=== PATIENT | male | born 1965 | race Asian ===

== ENCOUNTER → 2020-10-28 | Outpatient (CLI) | payer OTHER ==
--- NOTE | 2020-10-28 12:42 | REP ---
INDICATION: RT RENAL CYST F/U ABN IMAG CT. COMPARISON: CT 08/30/2020. TECHNIQUE: Real-time sonographic evaluation of the kidneys is performed. FINDINGS: Renal cortical echogenicity pattern is normal bilaterally and contours are smooth. There is no hydronephrosis bilaterally. There is a 1 cm anechoic cyst in the lower pole the right kidney and a 9 mm anechoic cyst in the upper pole the left kidney. The right kidney measures 10.9 x 5.2 x 5.7 cm. Left renal dimensions are 10.2 x 5.1 x 6.0 cm. The urinary bladder is unremarkable. Ureteral jets are not visualized in the urinary bladder with Doppler color evaluation. Prostate appears enlarged 4.2 x 5.2 x 4.5 cm, total volume 51.4 cc. IMPRESSION: Simple cyst lower pole right kidney 1 cm in diameter and another in the upper pole the left kidney 9 mm in diameter. <Electronically signed by Dandy Smith > 10/28/20 [id number]
== END ==
LOC: M RAD 11:51
PROVIDERS: ATTEND Family Medicine
DX: N28.1 Cyst of kidney, acquired (principal)

== ENCOUNTER → 2023-05-07 | Outpatient (REF) | payer OTHER | LOC: M SFHCDERM 17:12 | PROVIDERS: ATTEND Nurse Practitioner Family | DX: R23.8 Other skin changes (principal) ==

== ENCOUNTER → 2024-01-24 | Outpatient (CLI) | payer OTHER | LOC: M WHC 06:44 | PROVIDERS: ATTEND Nurse Practitioner Family | DX: I15.9 Secondary hypertension, unspecified (principal) ==

== ENCOUNTER 2024-06-02 08:13 | Inpatient (IN) | payer OTHER ==
[~2024-06-02] VITALS: Ht 157.5 cm; Wt 75.7 kg
[2024-06-02 09:56] LABS: AMPHETAMINES LEVEL URINE NEGATIVE (NEGATIVE); BARBITURATES URINE NEGATIVE (NEGATIVE); BENZODIAZEPINES URINE NEGATIVE (NEGATIVE); COCAINE METABOLITE URINE NEGATIVE (NEGATIVE); METHADONE URINE NEGATIVE (NEGATIVE); OPIATES URINE NEGATIVE (NEGATIVE)
[2024-06-02 09:57] LABS: CANNABINOIDS URINE NEGATIVE (NEGATIVE); PHENCYCLIDINE URINE NEGATIVE (NEGATIVE)
[2024-06-02 10:21] LABS: HEMATOCRIT 44.4 % (42.0-52.0); MEAN CORPUSCULAR HEMOGLOBIN 30.7 pg (27.0-33.0); MEAN CORPUSCULAR HGB CONC 33.8 g/dl (32.0-36.5); MEAN CORPUSCULAR VOLUME 90.8 fl (80.0-96.0); PLATELET COUNT, AUTOMATED 265 10^3/uL (150-450); RED BLOOD COUNT 4.89 10^6/uL (4.30-6.10); WHITE BLOOD COUNT 8.3 10^3/uL (4.0-10.0)
[2024-06-02 10:37] LABS: ETHYL ALCOHOL (ETHANOL) < 0.003 % (0.000-0.010)
[2024-06-02 10:38] LABS: SALICYLATE LEVEL < 3.0 MG/DL (<30)
[2024-06-02 10:39] LABS: ALBUMIN 3.9 G/DL (3.2-5.2); ALKALINE PHOSPHATASE 72 U/L (40-129); ALT/SGPT 26 U/L (7.0-40); AST/SGOT 14 U/L (<34); BILIRUBIN,DIRECT 0.5 MG/DL (<0.4); BILIRUBIN,TOTAL 1.5 MG/DL (0.3-1.2); BLOOD UREA NITROGEN 9 MG/DL (9-23); CALCIUM LEVEL 9.6 MG/DL (8.5-10.1); CARBON DIOXIDE LEVEL 27 MMOL/L (20-31); CHLORIDE LEVEL 104 MMOL/L (98-107); CREATININE FOR GFR 0.74 MG/DL (0.70-1.30); GLOMERULAR FILTRATION RATE > 90.0 (>56); GLUCOSE, FASTING 121 MG/DL (60-100); POTASSIUM SERUM 4.6 MMOL/L (3.5-5.1); SODIUM LEVEL 139 MMOL/L (136-145); TOTAL PROTEIN 7.4 G/DL (5.7-8.2)
[2024-06-02 10:42] LABS: THYROID STIMULATING HORMONE 1.172 uIU/ML (0.55-4.78)
[2024-06-02] MEDS ORDERED: OMEP1CAP73 PO (14:09)
[2024-06-02] MEDS ORDERED: KP BTAB PO (14:09)
[2024-06-02] MEDS ORDERED: VITA500T41 PO (14:09)
[2024-06-02] MEDS ORDERED: DOCU100C17 PO (14:12)
[2024-06-02] MEDS ORDERED: OMEG10002 PO (14:12)
[2024-06-02] MEDS ORDERED: ATOR80TA59 PO (14:12)
[2024-06-02] MEDS ORDERED: OMEP1CAP77 PO (14:14)
[2024-06-02] MEDS ORDERED: D 1010002 PO (14:15)
[2024-06-02] MEDS ORDERED: EQ HPAD TOP (14:17)
[2024-06-02] MEDS ORDERED: LORA-1041 PO (14:18)
[2024-06-02] MEDS ORDERED: IPRA6SP (14:19)
[2024-06-02] MEDS ORDERED: SPIR50TA4 PO (14:20)
[2024-06-02] MEDS ORDERED: AMLO1TAB25 PO (14:21)
[2024-06-02] MEDS ORDERED: ASPI81CH48 PO (14:22)
[2024-06-02] MEDS ORDERED: LIDO1PAD TOP (14:30)
[2024-06-02] MEDS ORDERED: POLY1.4S OU (14:35)
[2024-06-02] MEDS ORDERED: TAFL1DRO2 OU (14:35)
[2024-06-02] MEDS ORDERED: OLOP5DRO17 OU (14:37)
[2024-06-02] MEDS ORDERED: DORZ2SOL5 OU (14:37)
[2024-06-02] MEDS ORDERED: CYCL1DRO10 OU (14:41)
[2024-06-02] MEDS ORDERED: CARB15DR41 OU (14:41)
[2024-06-02] MEDS ORDERED: BRIM0.2S13 OU (14:42)
[2024-06-02] MEDS ORDERED: MAGN400T2 PO (14:44)
[2024-06-02] MEDS ORDERED: MED REC IN PROGRESS XX SCH (14:45)
[2024-06-02] MEDS ORDERED: VITA100T98 PO (14:47)
[2024-06-02] MEDS ORDERED: DIPH-435 PO (14:47)
[2024-06-02] MEDS ORDERED: DICL100G10 TOP (14:49)
[2024-06-02] MEDS ORDERED: diphenhydrAMINE 25MG CAP PO PRN (17:40)
[2024-06-02] MEDS ORDERED: IBUPROFEN 400MG TAB PO PRN (17:40)
[2024-06-02] MEDS ORDERED: traZODone 50 MG TAB PO PRN (17:40)
[2024-06-02] MEDS ORDERED: ACETAMINOPHEN 325 MG TAB PO PRN (17:40)
[2024-06-02] MEDS ORDERED: MOM 30ML SUSPENSION UDC PO PRN (17:40)
[2024-06-02] MEDS ORDERED: MAALOX 30 ML SUSP *UDC PO PRN (17:40)
[2024-06-02] MEDS ORDERED: PRAZ1CAP PO (19:05)
[2024-06-02] MEDS ORDERED: ZOLO100T PO (19:05)
[2024-06-02] MEDS ORDERED: TIZA10TA PO (19:05)
[2024-06-02] MEDS ORDERED: GABA-1172 PO (19:05)
[2024-06-02] MEDS ORDERED: CARV25TA PO (19:05)
[2024-06-02] MEDS ORDERED: LISI40TA4 PO (19:05)
[2024-06-02] MEDS ORDERED: ZOLP12.535 PO (19:05)
[2024-06-02] MEDS ORDERED: HYDR-161 PO (19:05)
[2024-06-02] MEDS ORDERED: LAMO150T3 PO (19:05)
[2024-06-02] MEDS ORDERED: AIMO70IN2 SQ (19:20)
[2024-06-02] MEDS ORDERED: ATEN50TA2 PO (19:20)
[2024-06-02] MEDS ORDERED: PROC10TA5 PO (19:20)
[2024-06-02] MEDS ORDERED: SUMA6CAR SC (19:20)
[2024-06-02] MEDS ORDERED: PREDOPD OS (19:20)
[2024-06-02] MEDS ORDERED: CLIN1GEL55 TP (19:20)
[2024-06-02] MEDS ORDERED: HOME MED LIST COMPLETE! XX SCH (19:25)
[2024-06-02] MEDS ORDERED: SUMAtriptan SUCCINATE 6MG/0.5ML VIAL SC PRN (19:55)
[2024-06-02] MEDS ORDERED: PROCHLORPERAZINE 5MG TAB PO PRN (19:55)
[2024-06-02] MEDS ORDERED: PILL CUTTER 1 EACH XX PRN (20:20)
[2024-06-02 20:53] VITALS: BP 132/87; TEMP 97.3; O2SAT 99
[2024-06-02] MEDS ORDERED: TAFLUPROST 0.0015% OU SCH (21:00)
[2024-06-02] MEDS: IPRATROPIUM 0.06% NASAL SPRAY 15 ML (ATROVENT) SCH (21:00)
[2024-06-02] MEDS: BRIMONIDINE 0.15% OPHTH SOLN 5 ML OU SCH (23:38)
[2024-06-02] MEDS: COSOPT OCUMETER PLUS 10ML (DORZOLAMIDE/TIMOLOL) OU SCH (23:39)
[2024-06-02] MEDS: CLINDAMYCIN TOP 1% SOLN 60ML BTL TOP SCH (23:40)
[2024-06-02] MEDS: atenoloL 50 MG TAB PO SCH (23:42)
[2024-06-02] MEDS: **hydrALAZINE** 10 MG TAB PO SCH (23:43)
[2024-06-02] MEDS: CARVedilol 12.5 MG TAB PO SCH (23:43)
[2024-06-02] MEDS: prednisoLONE ACET 1% OPHTH SUSP 5ML OS SCH (23:44)
[2024-06-02] MEDS: PRAZOSIN 1 MG CAP PO SCH (23:56)
[2024-06-02] MEDS: GABAPENTIN 300 MG CAP PO SCH (23:56)
[2024-06-02] MEDS: tiZANidine 4 MG TAB PO SCH (23:56)
[2024-06-02] MEDS: SPIRONOLACTONE 50 MG TAB PO SCH (23:57)
[2024-06-02] MEDS: ATORVASTATIN 20 MG TAB PO SCH (23:57)
[2024-06-02] MEDS: DOCUSATE SODIUM 100MG CAPSULE PO SCH (23:57)
[2024-06-03] VITALS (10 sets, daily range): BP systolic 74–132; BP diastolic 42–79; TEMP 95.8–97.3; O2SAT 97–99
[2024-06-03] MEDS: SERTRALINE 100 MG TAB PO SCH (08:47)
[2024-06-03] MEDS: VITAMIN D 1,000 INTERNATIONAL UNITS TABLET PO SCH (08:47)
[2024-06-03] MEDS: lamoTRIgine 100MG TAB PO SCH (08:48)
[2024-06-03] MEDS: CYANOCOBALAMIN 500 MCG TAB PO SCH (08:49)
[2024-06-03] MEDS: VITAMIN B COMPLEX/VIT C CAP PO SCH (08:49)
[2024-06-03] MEDS: ASPIRIN 81MG CHEW TABLET PO SCH (08:49)
[2024-06-03] MEDS: OMEPRAZOLE 20MG CAP PO SCH (08:50)
[2024-06-03] MEDS: lisinopriL 40MG TAB PO SCH (08:50)
[2024-06-03] MEDS: LORATADINE 10 MG TAB PO SCH (08:50)
[2024-06-03] MEDS: LIDOCAINE 5% (LIDODERM) PATCH TOP SCH (08:51)
[2024-06-03] MEDS: OLOPATADINE 0.1% OPHTH SOL 5ML(PATANOL) OU SCH (08:51)
[2024-06-03] MEDS: POLYVINYL ALCOHOL OPHTH SOLN 15ML (LIQUITEARS) OU SCH (08:56)
[2024-06-03] MEDS ORDERED: ISOVUE-370 76% 100ML VIAL As Ordered ONE (10:08)
[2024-06-03] MEDS ORDERED: LORazepam 2 MG/ML 1ML VIAL As Ordered ONE (10:09)
[2024-06-03 10:16] LABS: BASO % 0.3 % (0.0-1.0); EOS % 0.3 % (0.0-3.0); HEMATOCRIT 39.2 % (42.0-52.0); HEMOGLOBIN 13.7 g/dl (13.5-17.5); LYMPH # 1.8 10^3/uL (1.5-5.0); LYMPH % 16.9 % (24.0-44.0); MEAN CORPUSCULAR HEMOGLOBIN 30.9 pg (27.0-33.0); MEAN CORPUSCULAR HGB CONC 34.9 g/dl (32.0-36.5); MEAN CORPUSCULAR VOLUME 88.5 fl (80.0-96.0); MONO # 0.9 10^3/uL (0.0-0.8); MONO % 8.8 % (2.0-8.0); NEUTROPHILS # 7.6 10^3/uL (1.5-8.5); NEUTROPHILS % 73.2 % (36.0-66.0); PLATELET COUNT, AUTOMATED 245 10^3/uL (150-450); RED BLOOD COUNT 4.43 10^6/uL (4.30-6.10); WHITE BLOOD COUNT 10.4 10^3/uL (4.0-10.0)
[2024-06-03 10:37] LABS: ALBUMIN 3.5 G/DL (3.2-5.2); ALKALINE PHOSPHATASE 56 U/L (40-129); ALT/SGPT 24 U/L (7.0-40); AST/SGOT 10 U/L (<34); BILIRUBIN,TOTAL 1.9 MG/DL (0.3-1.2); BLOOD UREA NITROGEN 13 MG/DL (9-23); CALCIUM LEVEL 9.2 MG/DL (8.5-10.1); CARBON DIOXIDE LEVEL 24 MMOL/L (20-31); CHLORIDE LEVEL 101 MMOL/L (98-107); CREATININE FOR GFR 0.88 MG/DL (0.70-1.30); GLOMERULAR FILTRATION RATE > 90.0 (>56); GLUCOSE, FASTING 136 MG/DL (60-100); MAGNESIUM LEVEL 1.8 MG/DL (1.8-2.4); POTASSIUM SERUM 4.5 MMOL/L (3.5-5.1); SODIUM LEVEL 135 MMOL/L (136-145); TOTAL PROTEIN 6.4 G/DL (5.7-8.2)
[2024-06-03] MEDS: KETOROLAC 30 MG/ML 1ML VIAL IM ONE (11:20)
[2024-06-03] MEDS: LORazepam 2 MG/ML 1ML VIAL IM STA (11:21)
[2024-06-03] MEDS ORDERED: SODIUM CHLORIDE 0.9% 1000 ML IV ONE (14:50)
[2024-06-04] MEDS ORDERED: lamoTRIgine 25MG TAB PO SCH (09:00)
== END 2024-06-03 15:41 | disposition other institution (70) | DRG 885 ==
LOC: M ED 08:13 → M ED INP 17:37 → M PSY 21:02
PROVIDERS: ADMIT Student in an Organized Health Care Education/Training Program; ATTEND Psychiatry & Neurology Psychiatry
DX: F29 Unspecified psychosis not due to a substance or known physiological condition (principal); F32.3 Major depressive disorder, single episode, severe with psychotic features; Z79.899 Other long term (current) drug therapy

== ENCOUNTER 2024-06-03 15:28 | Observation (INO) | payer OTHER ==
[~2024-06-03] VITALS: Ht 162.6 cm; Wt 83.0 kg
[~2024-06-03 15:28] MED LIST: AIMO70IN2 SQ; AMLO1TAB25 PO; ASPI81CH48 PO; ATEN50TA2 PO; ATOR80TA59 PO; BRIM0.2S13 OU; CARB15DR41 OU; CARV25TA PO; CLIN1GEL55 TP; CYCL1DRO10 OU; D 1010002 PO; DICL100G10 TOP; DIPH-435 PO; DOCU100C17 PO; DORZ2SOL5 OU; EQ HPAD TOP; GABA-1172 PO; HYDR-161 PO; IPRA6SP; KP BTAB PO; LAMO150T3 PO; LIDO1PAD TOP; LISI40TA4 PO; LORA-1041 PO; MAGN400T2 PO; OLOP5DRO17 OU; OMEG10002 PO; OMEP1CAP73 PO; OMEP1CAP77 PO; POLY1.4S OU; PRAZ1CAP PO; PREDOPD OS; PROC10TA5 PO; SPIR50TA4 PO; SUMA6CAR SC; TAFL1DRO2 OU; TIZA10TA PO; VITA100T98 PO; VITA500T41 PO; ZOLO100T PO; ZOLP12.535 PO
[2024-06-03] MEDS: NS (Normal Saline) 0.9% 1,000 ML IV ONE ×2 (15:54→17:25)
[2024-06-03 15:59] VITALS: BP 89/59; TEMP 97.5; O2SAT 100
[2024-06-03 16:41] LABS: HEMATOCRIT 34.7 % (42.0-52.0); HEMOGLOBIN 11.9 g/dl (13.5-17.5); MEAN CORPUSCULAR HEMOGLOBIN 31.3 pg (27.0-33.0); MEAN CORPUSCULAR HGB CONC 34.3 g/dl (32.0-36.5); MEAN CORPUSCULAR VOLUME 91.3 fl (80.0-96.0); PLATELET COUNT, AUTOMATED 208 10^3/uL (150-450); WHITE BLOOD COUNT 9.9 10^3/uL (4.0-10.0)
[2024-06-03 17:03] LABS: CALCIUM LEVEL 8.3 MG/DL (8.5-10.1); CREATININE FOR GFR 1.02 MG/DL (0.70-1.30); GLOMERULAR FILTRATION RATE 85.7 (>56)
[2024-06-03] MEDS: NS (Normal Saline) 0.9% 1,000 ML IV SCH (18:12)
[2024-06-03] MEDS: DICLOFENAC EPOLAMINE 1.3% PATCH TOP SCH (18:12)
[2024-06-03 18:21] VITALS: BP 107/67
[2024-06-03] MEDS ORDERED: POLYVINYL ALCOHOL OPHTH SOLN 15ML (LIQUITEARS) OU PRN (19:25)
[2024-06-03 19:41] VITALS: BP 89/57; TEMP 98; O2SAT 97
[2024-06-03] MEDS: CLINDAMYCIN TOP 1% SOLN 60ML BTL TOP SCH (20:49)
[2024-06-03] MEDS: COSOPT OCUMETER PLUS 10ML (DORZOLAMIDE/TIMOLOL) OU SCH (20:49)
[2024-06-03] MEDS: ATORVASTATIN 20 MG TAB PO SCH (20:50)
[2024-06-03] MEDS: BRIMONIDINE 0.15% OPHTH SOLN 5 ML OU SCH (20:50)
[2024-06-03] MEDS: ACETAMINOPHEN 325 MG TAB PO ONE (20:58)
[2024-06-03] MEDS: RAMELTEON 8 MG TAB (ROZEREM) PO PRN (22:09)
[2024-06-04 00:06] VITALS: BP 96/59; TEMP 98.3; O2SAT 95
[2024-06-04 03:21] VITALS: BP 93/55; TEMP 99.7; O2SAT 96
[2024-06-04 06:22] LABS: HEMATOCRIT 34.9 % (42.0-52.0); HEMOGLOBIN 11.7 g/dl (13.5-17.5); MEAN CORPUSCULAR HEMOGLOBIN 31.2 pg (27.0-33.0); MEAN CORPUSCULAR HGB CONC 33.5 g/dl (32.0-36.5); MEAN CORPUSCULAR VOLUME 93.1 fl (80.0-96.0); PLATELET COUNT, AUTOMATED 191 10^3/uL (150-450); RED BLOOD COUNT 3.75 10^6/uL (4.30-6.10); WHITE BLOOD COUNT 9.2 10^3/uL (4.0-10.0)
[2024-06-04 06:43] LABS: BLOOD UREA NITROGEN 11 MG/DL (9-23); CALCIUM LEVEL 7.9 MG/DL (8.5-10.1); CARBON DIOXIDE LEVEL 25 MMOL/L (20-31); CHLORIDE LEVEL 106 MMOL/L (98-107); CREATININE FOR GFR 0.78 MG/DL (0.70-1.30); GLOMERULAR FILTRATION RATE > 90.0 (>56); GLUCOSE, FASTING 107 MG/DL (60-100); POTASSIUM SERUM 4.6 MMOL/L (3.5-5.1); SODIUM LEVEL 138 MMOL/L (136-145)
[2024-06-04 06:49] LABS: PROCALCITONIN <0.04 ng/ml
[2024-06-04 07:25] VITALS: BP 119/71; TEMP 99.5; O2SAT 95
[2024-06-04] MEDS: OMEPRAZOLE 20MG CAP PO SCH (08:34)
[2024-06-04] MEDS: ASPIRIN 81MG CHEW TABLET PO SCH (08:34)
[2024-06-04] MEDS: OLOPATADINE 0.1% OPHTH SOL 5ML(PATANOL) OU SCH (08:34)
[2024-06-04 12:00] VITALS: BP 115/70; TEMP 98.6; O2SAT 97
[2024-06-04 16:05] VITALS: BP 115/71; TEMP 97.1; O2SAT 97
[2024-06-04 19:54] VITALS: BP 117/71; TEMP 98.4; O2SAT 95
== END 2024-06-04 22:11 ==
LOC: INTOOBSV 15:42 → M PCU 15:42
PROVIDERS: ADMIT Student in an Organized Health Care Education/Training Program; ATTEND Student in an Organized Health Care Education/Training Program
DX: I95.9 Hypotension, unspecified (principal); E87.20 Acidosis, unspecified; E87.1 Hypo-osmolality and hyponatremia; D64.9 Anemia, unspecified; R41.0 Disorientation, unspecified; R63.4 Abnormal weight loss; F39 Unspecified mood [affective] disorder; I10 Essential (primary) hypertension; K21.9 Gastro-esophageal reflux disease without esophagitis; K59.00 Constipation, unspecified; E55.9 Vitamin D deficiency, unspecified; M54.9 Dorsalgia, unspecified; F43.10 Post-traumatic stress disorder, unspecified; F41.9 Anxiety disorder, unspecified; L73.2 Hidradenitis suppurativa; G43.909 Migraine, unspecified, not intractable, without status migrainosus; R91.1 Solitary pulmonary nodule; J30.9 Allergic rhinitis, unspecified; H53.9 Unspecified visual disturbance; Z82.49 Family history of ischemic heart disease and other diseases of the circulatory system; Z81.8 Family history of other mental and behavioral disorders; Z63.4 Disappearance and death of family member; Z79.899 Other long term (current) drug therapy; Z79.82 Long term (current) use of aspirin
CPT/HCPCS: 36415; 70450; 80048; 83605; 84145; 85027; 94660; 96360; 96361; G0378

== ENCOUNTER 2024-06-04 20:09 | Inpatient (IN) | payer OTHER, BC ==
[~2024-06-04] VITALS: Ht 157.5 cm; Wt 75.7 kg
[2024-06-04] MEDS ORDERED: MAALOX 30 ML SUSP *UDC PO PRN (20:40)
[2024-06-04] MEDS ORDERED: ACETAMINOPHEN 325 MG TAB PO PRN (20:40)
[2024-06-04] MEDS ORDERED: traZODone 50 MG TAB PO PRN (20:40)
[2024-06-04] MEDS ORDERED: MOM 30ML SUSPENSION UDC PO PRN (20:40)
[2024-06-04] MEDS ORDERED: HOME MED LIST COMPLETE! XX SCH (22:30)
[2024-06-04 23:39] VITALS: BP 141/79; TEMP 97.6; O2SAT 98
[2024-06-05 06:42] VITALS: BP 152/99; TEMP 97; O2SAT 99
[2024-06-05] MEDS: CLINDAMYCIN TOP 1% SOLN 60ML BTL TOP SCH (09:00)
[2024-06-05] MEDS: OLOPATADINE 0.1% OPHTH SOL 5ML(PATANOL) OU SCH (11:20)
[2024-06-05] MEDS: lamoTRIgine 25MG TAB PO SCH (11:24)
[2024-06-05] MEDS: ASPIRIN 81MG CHEW TABLET PO SCH (11:24)
[2024-06-05] MEDS: SERTRALINE HCL 50 MG TAB PO SCH (11:24)
[2024-06-05] MEDS: POLYVINYL ALCOHOL OPHTH SOLN 15ML (LIQUITEARS) OU SCH (11:24)
[2024-06-05] MEDS ORDERED: POLYVINYL ALCOHOL OPHTH SOLN 15ML (LIQUITEARS) OU PRN (11:25)
[2024-06-05] MEDS: COSOPT OCUMETER PLUS 10ML (DORZOLAMIDE/TIMOLOL) OU SCH (11:30)
[2024-06-05] MEDS: BRIMONIDINE 0.1% OPHTH SOLN 5ML OU SCH (12:26)
[2024-06-05] MEDS: amLODIPine 5 MG TAB PO SCH (12:27)
[2024-06-05] MEDS: prednisoLONE ACET 1% OPHTH SUSP 5ML OS SCH (12:31)
[2024-06-05] MEDS: diphenhydrAMINE 25MG CAP PO PRN (17:05)
[2024-06-05] MEDS: zolPIDEM TARTRATE 5 MG TAB PO SCH (20:20)
[2024-06-05] MEDS: ATORVASTATIN 20 MG TAB PO SCH (20:21)
[2024-06-06 06:40] VITALS: BP 134/95; TEMP 97.2; O2SAT 100
[2024-06-06 15:20] VITALS: BP 158/106; TEMP 96.9; O2SAT 100
[2024-06-06 16:37] VITALS: BP 148/108
[2024-06-06] MEDS: PRAZOSIN 1 MG CAP PO ONE (17:33)
[2024-06-06] MEDS: PRAZOSIN 1 MG CAP PO SCH (20:15)
[2024-06-07 06:33] VITALS: BP 123/82; TEMP 97.8; O2SAT 100
[2024-06-07 08:21] VITALS: BP 122/88
[2024-06-07 15:12] VITALS: BP 162/98; TEMP 97.4; O2SAT 97
[2024-06-07] MEDS: **hydrALAZINE** 50 MG TAB PO ONE (16:36)
[2024-06-07] MEDS: IBUPROFEN 400MG TAB PO PRN (17:21)
[2024-06-07 17:45] VITALS: BP 140/90
[2024-06-07 20:37] VITALS: BP 132/89
[2024-06-07] MEDS: OLANZapine 5 MG TAB PO SCH (20:40)
[2024-06-08 06:52] VITALS: BP 120/76; TEMP 97.6; O2SAT 97
[2024-06-08 16:05] VITALS: BP 118/72; TEMP 97.1; O2SAT 98
[2024-06-08 20:14] VITALS: BP 140/90
[2024-06-09 06:36] VITALS: BP 132/97; TEMP 97.2; O2SAT 95
[2024-06-09 07:58] VITALS: BP 132/82
[2024-06-09 15:12] VITALS: BP 160/102; TEMP 97.4; O2SAT 98
[2024-06-09] MEDS: OLANZapine ORAL DISINTEGRATING TAB 5MG PO PRN (15:36)
[2024-06-09 16:30] VITALS: BP 148/102
[2024-06-09 16:33] LABS: BASO # 0.1 10^3/uL (0.0-0.2); BASO % 0.7 % (0.0-1.0); EOS # 0.1 10^3/uL (0.0-0.5); EOS % 0.7 % (0.0-3.0); HEMATOCRIT 42.2 % (42.0-52.0); HEMOGLOBIN 14.3 g/dl (13.5-17.5); LYMPH # 2.5 10^3/uL (1.5-5.0); MEAN CORPUSCULAR HEMOGLOBIN 31.1 pg (27.0-33.0); MEAN CORPUSCULAR HGB CONC 33.9 g/dl (32.0-36.5); MEAN CORPUSCULAR VOLUME 91.7 fl (80.0-96.0); MONO % 11.7 % (2.0-8.0); NEUTROPHILS # 4.5 10^3/uL (1.5-8.5); NEUTROPHILS % 55.7 % (36.0-66.0); PLATELET COUNT, AUTOMATED 304 10^3/uL (150-450); WHITE BLOOD COUNT 8.1 10^3/uL (4.0-10.0)
[2024-06-09 17:03] LABS: ETHYL ALCOHOL (ETHANOL) 0.004 % (0.000-0.010)
[2024-06-09 17:05] LABS: THYROID STIMULATING HORMONE 1.926 uIU/ML (0.55-4.78)
[2024-06-09 17:10] LABS: BLOOD UREA NITROGEN 14 MG/DL (9-23); CARBON DIOXIDE LEVEL 27 MMOL/L (20-31); CHLORIDE LEVEL 106 MMOL/L (98-107); CREATININE FOR GFR 0.87 MG/DL (0.70-1.30); GLOMERULAR FILTRATION RATE > 90.0 (>56); GLUCOSE, FASTING 101 MG/DL (60-100); POTASSIUM SERUM 4.2 MMOL/L (3.5-5.1); SODIUM LEVEL 141 MMOL/L (136-145)
[2024-06-09 17:20] LABS: AMORPHOUS SEDIMENT SMALL (NEGATIVE); APPEARANCE, URINE CLOUDY (CLEAR); BACTERIA, URINE AUTO NEGATIVE (NEGATIVE); BILIRUBIN, URINE AUTO NEGATIVE (NEGATIVE); BLOOD, URINE BLOOD NEGATIVE (NEGATIVE); COLOR, URINE YELLOW (YELLOW); GLUCOSE, URINE (UA) AUTO NEGATIVE (NEGATIVE); KETONE, URINE AUTO NEGATIVE (NEGATIVE); LEUKOCYTE ESTERASE, URINE AUTO NEGATIVE (NEGATIVE); MUCUS, URINE SMALL (NEGATIVE); NITRITE, URINE AUTO NEGATIVE (NEGATIVE); PROTEIN, URINE AUTO NEGATIVE (NEGATIVE); RBC, URINE AUTO 2 /HPF (0-3); SPECIFIC GRAVITY URINE AUTO 1.017 (1.002-1.035); SQUAMOUS EPITHELIAL CELL UR AU 0 /HPF (0-6); WBC, URINE AUTO 0 /HPF (0-3)
[2024-06-09 17:30] LABS: AMPHETAMINES LEVEL URINE NEGATIVE (NEGATIVE); BARBITURATES URINE NEGATIVE (NEGATIVE); BENZODIAZEPINES URINE NEGATIVE (NEGATIVE); COCAINE METABOLITE URINE NEGATIVE (NEGATIVE); METHADONE URINE NEGATIVE (NEGATIVE); OPIATES URINE NEGATIVE (NEGATIVE)
[2024-06-09 17:31] LABS: CANNABINOIDS URINE NEGATIVE (NEGATIVE); PHENCYCLIDINE URINE NEGATIVE (NEGATIVE)
[2024-06-09 18:30] VITALS: BP 170/110
[2024-06-09] MEDS ORDERED: PILL CUTTER 1 EACH XX PRN (19:05)
[2024-06-09] MEDS: **hydrALAZINE HCL** 25 MG TAB PO ONE (19:55)
[2024-06-10 06:12] VITALS: BP 113/78; TEMP 97.1; O2SAT 99
[2024-06-10 08:10] VITALS: BP 127/88
[2024-06-10] MEDS: SERTRALINE HCL 50 MG TAB PO ONE (09:27)
[2024-06-10 18:04] VITALS: BP 142/88; TEMP 97.8
[2024-06-11 06:27] VITALS: BP 155/90; TEMP 98.2; O2SAT 98
[2024-06-11 08:11] VITALS: BP 142/96
[2024-06-11] MEDS: SERTRALINE 100 MG TAB PO SCH (08:11)
[2024-06-11] MEDS ORDERED: OLAN1TAB16 PO (11:01)
[2024-06-11] MEDS ORDERED: ATOR1TAB21 PO (11:01)
[2024-06-11] MEDS ORDERED: DORZ10DR10 OU (11:01)
[2024-06-11] MEDS ORDERED: ZOLP-532 PO (11:01)
[2024-06-11] MEDS ORDERED: BRIM5DRO15 OU (11:01)
[2024-06-11] MEDS ORDERED: CLIN1SOL TOP (11:01)
[2024-06-11] MEDS ORDERED: OLOP5DRO17 OU (11:01)
[2024-06-11] MEDS ORDERED: ZOLO100T PO (11:01)
[2024-06-11] MEDS ORDERED: POLY1.4S OU (11:01)
[2024-06-11] MEDS ORDERED: LAMI25TA PO (11:01)
[2024-06-11] MEDS ORDERED: AMLO1TAB24 PO (11:01)
[2024-06-11] MEDS ORDERED: ASPI81CH8 PO (11:01)
[2024-06-11] MEDS ORDERED: PRAZ1CAP PO (11:01)
[2024-06-11] MEDS ORDERED: PREDOPD OS (11:01)
== END 2024-06-11 13:55 | disposition home or self-care (01) | DRG 885 ==
LOC: M PSY 21:19 → UNDOADMIN 21:19 → UNDODISIN 22:34 → M PSY 22:50
PROVIDERS: ADMIT Psychiatry & Neurology Neurology; ATTEND Psychiatry & Neurology Psychiatry
DX: F31.9 Bipolar disorder, unspecified (principal); F41.1 Generalized anxiety disorder; F43.10 Post-traumatic stress disorder, unspecified; Z91.148 Patient's other noncompliance with medication regimen for other reason; Z79.82 Long term (current) use of aspirin; Z79.899 Other long term (current) drug therapy; I10 Essential (primary) hypertension; E78.5 Hyperlipidemia, unspecified; H40.9 Unspecified glaucoma; G43.909 Migraine, unspecified, not intractable, without status migrainosus; L73.2 Hidradenitis suppurativa; M54.9 Dorsalgia, unspecified; K21.9 Gastro-esophageal reflux disease without esophagitis; R63.4 Abnormal weight loss; R91.1 Solitary pulmonary nodule

== ENCOUNTER → 2024-09-23 | Outpatient (REF) ==
[~2024-09-23] MED LIST changes: +AMLO1TAB24 PO; +ASPI81CH8 PO; +ATOR1TAB21 PO; +BRIM5DRO15 OU; +CLIN1SOL TOP; +DORZ10DR10 OU; +LAMI25TA PO; +LISI40TA10 PO; -LISI40TA4 PO; +OLAN1TAB16 PO; +ZOLP-532 PO
== END ==
LOC: M RAD 15:52
PROVIDERS: ATTEND Internal Medicine
DX: R52 Pain, unspecified (principal)

== ENCOUNTER 2024-10-22 06:01 | Day surgery (SDC) | payer BC, OTHER ==
[~2024-10-22] VITALS: Ht 157.5 cm; Wt 90.3 kg
[~2024-10-22 06:01] MED LIST changes: +ATOR40TA75 PO; +BRIM0.2S13; +CIPR0.3S37; +CLIN1PAD2; +DORZ2SOL5; +KETO120S5; +LAMO-18 PO; +LIDO1PAD; +OMEP-173 PO; +SUMA6PEN5; +VITA100093 PO; +ZOLP5TAB9 PO
[2024-10-22] MEDS: LIDOCAINE 3.5% 1 ML OPHTH TOPICAL GEL OU ONE (06:34)
[2024-10-22] MEDS ORDERED: MIDAZOLAM INJ 2 MG/2 ML VIAL As Ordered ONE (06:48)
[2024-10-22] MEDS ORDERED: TOBRADEX OPHTH OINT 3.5 GM As Ordered ONE (07:06)
[2024-10-22] MEDS: POVIDONE-IODINE 5% OPHTH PREP SOL 30ML As Ordered ONE (07:50)
[2024-10-22] MEDS: BSS IRRIG/VANCO(10MG)/TOBRA(5MG)/EPINEPH(1:1000-0.5CC)500ML BAG-ORONLY As Ordered ONE (07:53)
[2024-10-22] MEDS: LIDOCAINE 1% SDV 5 ML VIAL As Ordered ONE (07:56)
[2024-10-22 08:00] VITALS: BP 104/68; TEMP 97.2; O2SAT 96
== END 2024-10-22 08:24 | disposition home or self-care (01) ==
LOC: M SDC 06:01
PROVIDERS: ATTEND Ophthalmology
DX: H40.1122 Primary open-angle glaucoma, left eye, moderate stage (principal); I10 Essential (primary) hypertension; E78.00 Pure hypercholesterolemia, unspecified; I71.40 Abdominal aortic aneurysm, without rupture, unspecified; G47.30 Sleep apnea, unspecified; K21.9 Gastro-esophageal reflux disease without esophagitis; K58.9 Irritable bowel syndrome, unspecified; Z79.899 Other long term (current) drug therapy; Z79.82 Long term (current) use of aspirin; Z91.040 Latex allergy status; G43.909 Migraine, unspecified, not intractable, without status migrainosus; F41.9 Anxiety disorder, unspecified; F32.A Depression, unspecified
CPT/HCPCS: 66183; C1783; J2250; J3010; J7315

== ENCOUNTER 2024-11-05 06:30 | Day surgery (SDC) | payer OTHER, BC ==
[~2024-11-05] VITALS: Ht 157.5 cm; Wt 90.6 kg
[2024-11-05] MEDS ORDERED: MIDAZOLAM INJ 2 MG/2 ML VIAL As Ordered ONE (06:57)
[2024-11-05] MEDS: LIDOCAINE 3.5% 1 ML OPHTH TOPICAL GEL OU ONE (07:11)
[2024-11-05] MEDS: TOBRADEX OPHTH OINT 3.5 GM As Ordered ONE (09:00)
[2024-11-05 09:09] VITALS: BP 103/57; TEMP 97.3; O2SAT 95
[2024-11-05] MEDS: LIDOCAINE 1% SDV 5 ML VIAL As Ordered ONE (10:12)
== END 2024-11-05 09:23 | disposition home or self-care (01) ==
LOC: M SDC 06:30
PROVIDERS: ATTEND Ophthalmology
DX: H40.1121 Primary open-angle glaucoma, left eye, mild stage (principal); I10 Essential (primary) hypertension; E78.00 Pure hypercholesterolemia, unspecified; G47.30 Sleep apnea, unspecified; K58.9 Irritable bowel syndrome, unspecified; Z79.899 Other long term (current) drug therapy; Z79.82 Long term (current) use of aspirin; Z91.040 Latex allergy status; K21.9 Gastro-esophageal reflux disease without esophagitis; F41.9 Anxiety disorder, unspecified; F32.A Depression, unspecified
CPT/HCPCS: 66183; C1783; J2250; J3010; J7315